=== PATIENT | male | born 1945 | race Caucasian/White ===

== ENCOUNTER → 2019-03-03 10:24 | Outpatient (CLI) | payer OTHER, MEDICARE, SELFPAY ==
[2019-03-03 11:54] LABS: Cholesterol 123 mg/dL (140-199); HDL Cholesterol 80 mg/dL (40-60); LDL Cholesterol Calculated 35 mg/dL (<100); Triglycerides 39 mg/dL (35-150)
[2019-03-06 12:37] LABS: Apolipoprotein B 39 mg/dL (< 90)
== END ==
PROVIDERS: Family Provider Family Medicine; Visit Provider Internal Medicine Cardiovascular Disease
DX: I25.10 Atherosclerotic heart disease of native coronary artery without angina pectoris (principal)
CPT/HCPCS: 36415; 80061